=== PATIENT | female | born 1980 | race Caucasian/White ===

== ENCOUNTER 2017-02-19 10:19 | Observation (INO) | payer BC ==
--- NOTE | 2017-02-19 10:52 | ED ---
General Adult HPI - General Chief complaint: Arrhythmia/Palpitations Stated complaint: palpations,dizzy Time Seen by Provider: 02/19/17 10:35 Source: patient, RN notes reviewed, old records reviewed Mode of arrival: wheelchair Limitations: no limitations - History of Present Illness Initial comments: This is a 36-year-old female ER for evaluation of chest pain. Patient is chest pain and left shoulder left-sided chest radiating to jaw. No significant history of heart disease. No travel history no sick contacts. Patient does admit to some mild anxiety but not currently. No recent stress in her life. No other complaints. Patient does complain of symptoms to his chest. Anteriorly, no diaphoresis or shortness of breath. Patient's symptoms started last night but continued at work today. She has history of polycystic ovarian syndrome and prediabetes. No recent weight gain or weight loss, - Related Data Home Medications Medication Instructions Recorded Confirmed Biotin 10,000 mcg PO DAILY 02/19/17 02/19/17 Chromium Picolinate 400 mcg PO DAILY 02/19/17 02/19/17 Multivitamins, Thera [Multivitamin 1 tab PO DAILY 02/19/17 02/19/17 (formulary)] Norethindrone-E.estradiol-Iron 1 tab PO DAILY 02/19/17 02/19/17 [Microgestin Fe 1.5-30 Tab] Spironolactone 100 mg PO DAILY 02/19/17 02/19/17 Vitamin B Complex 1 cap PO [id number] 02/19/17 02/19/17 metFORMIN HCL [Glucophage] 500 mg PO BID 02/19/17 02/19/17 Allergies Allergy/AdvReac Type Severity Reaction Status Date / Time Sulfa (Sulfonamide Allergy Rash/Hives Verified 02/19/17 11:01 Antibiotics) Review of Systems ROS Statement: Those systems with pertinent positive or pertinent negative responses have been documented in the HPI. ROS Other: All systems not noted in ROS Statement are negative. Past Medical History Additional Past Medical History / Comment(s): PCOS History of Any Multi-Drug Resistant Organisms: None Reported Past Surgical History: No Surgical Hx Reported Past Psychological History: No Psychological Hx Reported Smoking Status: Former smoker Past Alcohol Use History: Occasional Past Drug Use History: None Reported General Exam Limitations: no limitations General appearance: alert, in no apparent distress Head exam: Present: atraumatic, normocephalic, normal inspection Eye exam: Present: normal appearance, PERRL, EOMI. Absent: scleral icterus, conjunctival injection, periorbital swelling ENT exam: Present: normal exam, mucous membranes moist Neck exam: Present: normal inspection. Absent: tenderness, meningismus, lymphadenopathy Respiratory exam: Present: normal lung sounds bilaterally. Absent: respiratory distress, wheezes, rales, rhonchi, stridor Cardiovascular Exam: Present: regular rate, normal rhythm, normal heart sounds. Absent: systolic murmur, diastolic murmur, rubs, gallop, clicks GI/Abdominal exam: Present: soft, normal bowel sounds. Absent: distended, tenderness, guarding, rebound, rigid Extremities exam: Present: normal inspection, full ROM, normal capillary refill. Absent: tenderness, pedal edema, joint swelling, calf tenderness Back exam: Present: normal inspection Neurological exam: Present: alert, oriented X3, CN II-XII intact Psychiatric exam: Present: normal affect, normal mood Skin exam: Present: warm, dry, intact, normal color. Absent: rash Course Vital Signs 02/19/17 02/19/17 02/19/17 10:22 10:52 11:42 Temperature 97.8 F Pulse Rate 80 60 70 Respiratory 20 18 18 Rate Blood Pressure 175/74 132/77 128/88 O2 Sat by Pulse 99 99 98 Oximetry 02/19/17 12:00 Temperature Pulse Rate 70 Respiratory 18 Rate Blood Pressure 127/86 O2 Sat by Pulse 99 Oximetry - Reevaluation(s) Reevaluation #1: 02/19/17 13:17 Patient is in no significant distress no chest pain EKG Findings - EKG Comments: EKG Findings:: EKG shows normal sinus rhythm rate of 72, KS 160, QRS 100, QTC 435 Medical Decision Making - Medical Decision Making 36 female ER for evaluation of palpitations and chest pain. Patient does have hit family history of heart disease family history of arrhythmia, patient be kept in the ER for observation, kept on telemetry and admitted to the hospital for cardiac evaluation - Lab Data Result diagrams: 02/19/17 10:50 02/19/17 10:50 Lab Results 02/19/17 02/19/17 02/19/17 Range/Units 10:50 10:50 10:50 WBC 8.7 (3.8-10.6) k/uL RBC 5.08 (3.80-5.40) m/uL Hgb 15.8 (11.4-16.0) gm/dL Hct 47.0 H (34.0-46.0) % MCV 92.7 (80.0-100.0) fL MCH 31.1 (25.0-35.0) pg MCHC 33.5 (31.0-37.0) g/dL RDW 12.5 (11.5-15.5) % Plt Count 272 (150-450) k/uL Neutrophils % 66 % Lymphocytes % 26 % Monocytes % 4 % Eosinophils % 1 % Basophils % 1 % Neutrophils # 5.8 (1.3-7.7) k/uL Lymphocytes # 2.2 (1.0-4.8) k/uL Monocytes # 0.4 (0-1.0) k/uL Eosinophils # 0.1 (0-0.7) k/uL Basophils # 0.0 (0-0.2) k/uL PT (9.0-12.0) sec INR (<1.1) APTT (22.0-30.0) sec Sodium 139 (137-145) mmol/L Potassium 4.3 (3.5-5.1) mmol/L Chloride 101 (98-107) mmol/L Carbon Dioxide 26 (22-30) mmol/L Anion Gap 12 mmol/L BUN 12 (7-17) mg/dL Creatinine 0.60 (0.52-1.04) mg/dL Est GFR (MDRD) Af Amer >60 (>60 ml/min/1.73 sqM) Est GFR (MDRD) Non-Af >60 (>60 ml/min/1.73 sqM) Glucose 90 (74-99) mg/dL Calcium 10.2 (8.4-10.2) mg/dL Magnesium 1.8 (1.6-2.3) mg/dL Total Bilirubin 0.5 (0.2-1.3) mg/dL AST 39 H (14-36) U/L ALT 67 H (9-52) U/L Alkaline Phosphatase 52 (38-126) U/L Total Creatine Kinase 46 (30-135) U/L CK-MB (CK-2) 0.3 (0.0-2.4) ng/mL CK-MB (CK-2) Rel Index 0.7 Troponin I <0.012 (0.000-0.034) ng/mL Total Protein 7.6 (6.3-8.2) g/dL Albumin 4.5 (3.5-5.0) g/dL 02/19/17 Range/Units 10:50 WBC (3.8-10.6) k/uL RBC (3.80-5.40) m/uL Hgb (11.4-16.0) gm/dL Hct (34.0-46.0) % MCV (80.0-100.0) fL MCH (25.0-35.0) pg MCHC (31.0-37.0) g/dL RDW (11.5-15.5) % Plt Count (150-450) k/uL Neutrophils % % Lymphocytes % % Monocytes % % Eosinophils % % Basophils % % Neutrophils # (1.3-7.7) k/uL Lymphocytes # (1.0-4.8) k/uL Monocytes # (0-1.0) k/uL Eosinophils # (0-0.7) k/uL Basophils # (0-0.2) k/uL PT 10.0 (9.0-12.0) sec INR 1.0 (<1.1) APTT 23.6 (22.0-30.0) sec Sodium (137-145) mmol/L Potassium (3.5-5.1) mmol/L Chloride (98-107) mmol/L Carbon Dioxide (22-30) mmol/L Anion Gap mmol/L BUN (7-17) mg/dL Creatinine (0.52-1.04) mg/dL Est GFR (MDRD) Af Amer (>60 ml/min/1.73 sqM) Est GFR (MDRD) Non-Af (>60 ml/min/1.73 sqM) Glucose (74-99) mg/dL Calcium (8.4-10.2) mg/dL Magnesium (1.6-2.3) mg/dL Total Bilirubin (0.2-1.3) mg/dL AST (14-36) U/L ALT (9-52) U/L Alkaline Phosphatase (38-126) U/L Total Creatine Kinase (30-135) U/L CK-MB (CK-2) (0.0-2.4) ng/mL CK-MB (CK-2) Rel Index Troponin I (0.000-0.034) ng/mL Total Protein (6.3-8.2) g/dL Albumin (3.5-5.0) g/dL - Radiology Data Radiology results: report reviewed (Chest x-ray is negative for acute disease), image reviewed Critical Care Time Critical Care Time: Yes Total Critical Care Time: 31 Disposition Clinical Impression: Palpitations, Chest pain Disposition: ADMITTED IP TO THIS [facility] Condition: Undetermined Referrals: Maureen Galindo DO [Primary Care Provider] - 1-2 days
[2017-02-19 11:18] LABS: Basophils % (A) 1 %; CHCM 34.7; Eosinophils # (A) 0.1 k/uL (0-0.7); Eosinophils % (A) 1 %; HGB 15.8 gm/dL (11.4-16.0); Luc # (Auto) 0.19; Luc % (Auto) 2; Lymphocytes # (A) 2.2 k/uL (1.0-4.8); Lymphocytes % (A) 26 %; MCH 31.1 pg (25.0-35.0); MCHC 33.5 g/dL (31.0-37.0); MCV 92.7 fL (80.0-100.0); Mean Platelet Volume 8.1; Monocytes # (A) 0.4 k/uL (0-1.0); Monocytes % (A) 4 %; Neutrophils # (A) 5.8 k/uL (1.3-7.7); Neutrophils % (A) 66 %; RBC 5.08 m/uL (3.80-5.40); RDW 12.5 % (11.5-15.5); WBC 8.7 k/uL (3.8-10.6); WBC (Perox) 7.84
[2017-02-19 11:19] LABS: ALT 67 U/L (9-52); AST 39 U/L (14-36); Alkaline Phosphatase 52 U/L (38-126); Anion Gap 12 mmol/L; Blood Urea Nitrogen 12 mg/dL (7-17); Calcium 10.2 mg/dL (8.4-10.2); Carbon Dioxide 26 mmol/L (22-30); Chloride 101 mmol/L (98-107); Glucose 90 mg/dL (74-99); Magnesium 1.8 mg/dL (1.6-2.3); Non-African American GFR(MDRD) >60 (>60 ml/min/1.73 sqM); Potassium 4.3 mmol/L (3.5-5.1); Sodium 139 mmol/L (137-145); Total Bilirubin 0.5 mg/dL (0.2-1.3); Total Protein 7.6 g/dL (6.3-8.2)
[2017-02-19 11:28] LABS: Creatine Kinase 46 U/L (30-135)
[2017-02-19 11:32] LABS: Partial Thromboplastin Time 23.6 sec (22.0-30.0)
[2017-02-19 11:41] LABS: Creatine Kinase MB 0.3 ng/mL (0.0-2.4); Troponin I <0.012 ng/mL (0.000-0.034)
--- NOTE | 2017-02-19 12:26 | XR ---
EXAMINATION TYPE: XR chest 2V DATE OF EXAM ORDERED: 02/19/2017 HISTORY: Chest Pain. REFERENCE: None. FINDINGS: The lungs are clear. Pleural spaces are clear. Heart size is normal. IMPRESSION: NORMAL CHEST.
[2017-02-19] MEDS ORDERED: NITROGLYCERIN SL TABS 0.4 MG TAB SUBLINGUAL PRN (12:55)
[2017-02-19] MEDS ORDERED: ASPIRIN 81 MG CHEW PO STA (12:55)
[2017-02-19 16:00] LABS: Hemoglobin A1C 4.8 % (4.2-6.1)
[2017-02-19 16:57] LABS: ALT 65 U/L (9-52); AST 37 U/L (14-36); Alkaline Phosphatase 49 U/L (38-126); Anion Gap 11 mmol/L; Blood Urea Nitrogen 13 mg/dL (7-17); Calcium 9.5 mg/dL (8.4-10.2); Carbon Dioxide 26 mmol/L (22-30); Chloride 102 mmol/L (98-107); Glucose 84 mg/dL (74-99); Non-African American GFR(MDRD) >60 (>60 ml/min/1.73 sqM); Potassium 4.4 mmol/L (3.5-5.1); Sodium 139 mmol/L (137-145); Total Bilirubin 0.5 mg/dL (0.2-1.3); Total Protein 7.1 g/dL (6.3-8.2)
[2017-02-19 17:03] LABS: Creatine Kinase 43 U/L (30-135)
[2017-02-19 17:16] LABS: Creatine Kinase MB 0.7 ng/mL (0.0-2.4); Troponin I <0.012 ng/mL (0.000-0.034)
[2017-02-19] MEDS ORDERED: INSULIN LISPRO (humaLOG) 300 UNIT/3 ML VIAL SQ SCH (17:30)
[2017-02-19 20:12] VITALS: RESP 16
[2017-02-19] MEDS: metFORMIN 500 MG TAB PO SCH (20:31)
--- NOTE | 2017-02-19 22:29 | CONS ---
DATE OF CONSULTATION: Mr. Silva is a 36-year-old female with no prior history of coronary artery disease, history of polycystic kidney disease, who presented with palpitations and chest discomfort. The symptoms started while at work. She would have brief palpitations and brief chest discomfort lasting for a very short period of time and feels dizzy, reoccurred a few times during the day. She has been doing well otherwise. She is reasonably active physically, has no history of cardiac disease. She has no history of dizziness, palpitation or syncope. No history of PND, orthopnea, or peripheral edema. She has no prior cardiac history. She has had palpitation in the past but there was no clear etiology to them and they were rare. Her coronary risk factors are negative for hypertension and hyperlipidemia. She is a nonsmoker. There is no documented diabetes. Her medications at home include: 1. Spironolactone 100 mg daily. 2. Metformin 5 mg twice a day. 3. Biotin. REVIEW OF SYSTEMS: RESPIRATORY SYSTEM: She has no history of documented asthma, emphysema or ( ). GI system: No recent GI bleeding. No peptic ulcer disease. system: No dysuria or hematuria. Nervous system: No history of stroke or seizure. PHYSICAL EXAMINATION: She is a 36-year-old female, alert, oriented, in no apparent distress. Blood pressure 122/60 with a heart rate in the 70s. HEAD: Normocephalic. EYES: Sclerae anicteric. NECK: Good upstroke. No bruit. No jugular venous distention. LUNGS: Clear to auscultation. HEART: Regular rate and rhythm. S1, S2, no S3, no rub. ABDOMEN: Soft, nontender. EXTREMITIES: No edema. Lab data revealed troponin less than 0.012, AST is 39. ALT of 67, BUN and creatinine 12 and 0.6. Potassium 15.8. TSH of 0.161. IMPRESSION: 1. Symptoms of palpitations and chest discomfort of unclear etiology. Her arrhythmia does not appear to be related to malignant arrhythmia. 2. Low TSH, further work-up will be needed to rule out hyperthyroidism. 3. History of polycystic kidney disease. RECOMMENDATION: From the cardiac standpoint, I will review the result of her echocardiogram that was obtained. I will obtain a stress echocardiogram. If she has persistent symptoms, afterwards, then I would recommend to obtain event monitor. I have discussed those findings with the patient and her family and they are in full understanding and agreement. Thank you for this consult. We will follow with you.
[2017-02-19] MEDS ORDERED: ALPRAZolam 0.25 MG TAB PO PRN (22:43)
--- NOTE | 2017-02-19 23:13 | HP ---
DATE OF ADMISSION: 02/19/2017 CHIEF COMPLAINT: Palpitations, dizziness and chest pain. HISTORY OF PRESENT ILLNESS: This 36-year-old woman with a past medical history of multiple medical problems, including polycystic ovarian syndrome, chronic low back pain, DJD, history of anxiety, depression, being followed by Dr. Maureen Galindo in the outpatient setting, apparently had symptoms of chest pain, palpitations, dizziness and shortness of breath while going to work, and the patient came to [facility] and was admitted for further evaluation. The pain was felt as most like a pressure type of pain which was not radiating, present on the front of the chest without any associated relieving or aggravating factors. The patient came to [facility], admitted for further evaluation. EKG did not show any acute abnormality except some non-progression R-waves in the anterior leads. CBC, BMP noted. AST, ALT mildly elevated. TSH was 0.161. Free T4 is normal. PAST MEDICAL HISTORY: 1. History of polycystic ovarian syndrome. 2. Chronic low back pain. 3. DJD. Medications prior to admission include: 1. Chromium picolinate. 2. Biotin. 3. Glucophage 500 mg p.o. b.i.d. 4. Vitamin B complex 1 p.o. daily. 5. Aldactone 100 mg p.o. daily. 6. Multivitamins 1 p.o. daily. 7. Microgestin 1 tablet p.o. daily. ALLERGIES: SULFA. FAMILY HISTORY: History of atrial fibrillation and cancer in the family. History of cardiomyopathy, cardiac ablation, peripheral neuropathy, non-Hodgkin's lymphoma, anxiety, schizophrenia, bipolar in father. SOCIAL HISTORY: Previous history of smoking. Occasional alcohol intake. REVIEW OF SYSTEMS: ENT: No diminishing hearing. No diminished vision. CARDIOVASCULAR SYSTEM: As mentioned earlier. RESPIRATORY SYSTEM: As mentioned earlier. GI: No nausea. : No dysuria. NERVOUS SYSTEM: No numbness or weakness. ALLERGY/IMMUNOLOGY: No asthma or hayfever. MUSCULOSKELETAL: As mentioned earlier. HEMATOLOGY/ONCOLOGY: No history of anemia. ENDOCRINE: No history of diabetes, hypothyroidism. CONSTITUTIONAL: As mentioned earlier. DERMATOLOGY: Negative. RHEUMATOLOGY: As mentioned earlier. PHYSICAL EXAMINATION: Patient is alert and oriented x3. Pulse is 74, blood pressure 122/62, respiration 14, temperature 97.8, pulse ox 97% on room air. HEENT: Conjunctivae normal. NECK: No jugular venous distention. CARDIOVASCULAR SYSTEM: S1, S2 muffled. RESPIRATORY SYSTEM: Breath sounds diminished at the bases. No rhonchi. No crackles. ABDOMEN: Soft, nontender. No mass palpable. No hepatosplenomegaly. LEGS: No edema. No swelling. NERVOUS SYSTEM: Higher functions as mentioned earlier. Moves all 4 limbs. No focal motor or sensory deficit. LYMPHATICS: No lymph node palpable in neck, axillae or groin. SKIN: No ulcer, rash, bleeding. LABS: CBC within normal limits. Troponin 0.012. TSH 0.161. AST 39, ALT 67. EKG: non-progression of R-waves in the anterior leads. The chest x-ray is normal. ASSESSMENT: 1. Chest pain, possible unstable angina. 2. Non-progression of R-waves on the EKG. 3. Family history of cardiac issues. 4. Remote history of nicotine dependence. 5. Anxiety, depression not otherwise specified. 6. Polycystic ovarian syndrome. 7. Chronic low back pain and degenerative joint disease. 8. History of urinary tract infections. 9. Increased AST, ALT; hepatitis of undetermined etiology. 10. Decreased TSH with normal free T4. RECOMMENDATIONS AND DISCUSSION: In this 36-year-old woman who presented with multiple complex medical issues, we will monitor the patient closely, continue the current medications, continue symptomatic treatment. I recommend a 2-D echo with Doppler, possibly stress echo. Cardiology consultation. Symptomatic treatment will be provided. Will check a fasting lipid profile. Patient is taking Glucophage for polycystic ovarian syndrome, which will be continued. Prognosis guarded. Further recommendations to follow. Discussed with the patient, who understands and agrees. A copy of this dictation is being forwarded to Dr. Maureen Galindo, who is the primary physician.
[2017-02-20 00:56] LABS: Creatine Kinase 43 U/L (30-135)
[2017-02-20 01:10] LABS: Creatine Kinase MB 0.6 ng/mL (0.0-2.4); Troponin I <0.012 ng/mL (0.000-0.034)
[2017-02-20 05:42] LABS: Basophils % (A) 0 %; CH 31.6; CHCM 34.7; Eosinophils # (A) 0.2 k/uL (0-0.7); Eosinophils % (A) 2 %; HCT 45.3 % (34.0-46.0); HGB 15.3 gm/dL (11.4-16.0); Luc # (Auto) 0.17; Luc % (Auto) 2; Lymphocytes # (A) 3.1 k/uL (1.0-4.8); Lymphocytes % (A) 36 %; MCHC 33.9 g/dL (31.0-37.0); MCV 91.5 fL (80.0-100.0); Mean Platelet Volume 7.7; Monocytes # (A) 0.4 k/uL (0-1.0); Monocytes % (A) 5 %; Neutrophils # (A) 4.8 k/uL (1.3-7.7); Neutrophils % (A) 55 %; RBC 4.95 m/uL (3.80-5.40); RDW 12.5 % (11.5-15.5); WBC 8.8 k/uL (3.8-10.6); WBC (Perox) 8.49
[2017-02-20 06:06] LABS: Cholesterol 196 mg/dL (<200); HDL Cholesterol 86 mg/dL (40-60); Triglycerides 151 mg/dL (<150)
[2017-02-20] MEDS ORDERED: ACETAMINOPHEN TAB 325 MG TAB PO PRN (07:02)
[2017-02-20] MEDS ORDERED: B COMPLEX-VIT C-VIT E-ZINC 1 EACH TAB PO SCH (08:30)
[2017-02-20] MEDS ORDERED: SPIRONOLACTONE 25 MG TAB PO SCH (09:00)
[2017-02-20] MEDS ORDERED: ASPIRIN 325 MG TAB PO SCH (09:00)
--- NOTE | 2017-02-20 10:27 | ECHOF ---
Referral Reason: MEASUREMENTS -------- HEIGHT: 177.8 cm WEIGHT: 99.8 kg BP: 122/62 RVIDd: 2.1 cm (< 3.3) IVSd: 1.0 cm (0.6 - 1.1) LVIDd: 4.9 cm (3.9 - 5.3) LVPWd: 1.0 cm (0.6 - 1.1) IVSs: 1.4 cm LVIDs: 3.5 cm LVPWs: 1.4 cm LAESV Index (A-L): 13.87 ml/m Ao Diam: 2.4 cm (2.0 - 3.7) AV Cusp: 1.8 cm (1.5 - 2.6) LA Diam: 3.1 cm (2.7 - 3.8) MV EXCURSION: 13.059 mm (> 18.000) MV EF SLOPE: 70 mm/s (70 - 150) EPSS: 1.3 cm MV E Lake: 0.85 m/s MV DecT: 198 ms MV A Lake: 0.81 m/s MV E/A Ratio: 1.05 RAP: 5.00 mmHg RVSP: 10.41 mmHg FINDINGS -------- Sinus rhythm. This was a technically adequate study. Overall left ventricular systolic function is normal with, an EF between 55 - 60 %. The right ventricle is normal in size and function. Normal LA size by volume 22+/-6 ml/m2. The right atrium is normal in size. The aortic valve is trileaflet, and appears structurally normal. No aortic stenosis or regurgitation. The mitral valve leaflets are mildly thickened. There is trace mitral regurgitation. Trace tricuspid regurgitation present. There is no evidence of pulmonary hypertension. The right ventricular systolic pressure, as measured by Doppler, is 10.41mmHg. The pulmonic valve is normal. The aortic root size is normal. Normal inferior vena cava with normal inspiratory collapse consistent with estimated right atrial pressure of 5 mmHg. The pericardium is normal. There is no pericardial effusion. CONCLUSIONS -------- 1. Sinus rhythm. 2. The aortic root size is normal. 3. There is no pericardial effusion. 4. Overall left ventricular systolic function is normal with, an EF between 55 - 60 %. 5. Normal LA size by volume 22+/-6 ml/m2. 6. The aortic valve is trileaflet, and appears structurally normal. No aortic stenosis or regurgitation. 7. The mitral valve leaflets are mildly thickened. 8. There is trace mitral regurgitation. 9. Trace tricuspid regurgitation present. 10. There is no evidence of pulmonary hypertension. 11. The right ventricular systolic pressure, as measured by Doppler, is 10.41mmHg. BUZZLE BUFFER: Edgar Villanueva RDCS
[2017-02-20 11:42] VITALS: BP 143/94; PULSE 88; TEMP 98.5
[2017-02-20] MEDS: metFORMIN 500 MG TAB PO SCH (11:54)
[2017-02-20] MEDS ORDERED: MULTIVITAMINS, THERA 1 EACH TAB PO SCH (12:00)
--- NOTE | 2017-02-20 12:42 | ECHOS ---
DATE OF SERVICE: 02/20/2017 AGE: 36Y SEX: F HT: 70 WT: 219 lbs. Protocol Thee: X Others: Stress Echo Stage: III Dur. of Exercise: 8 minutes *Heart Rate Blood Pressure *Rest: 107 Rest: 116/49 * *Max. Achieved: 158 Maximum BP: 210/33 85% PMHR: 158 100% PMHR: 186 *METS: 9.6 INDICATIONS: Chest pain. MEDICATIONS: Metformin, spironolactone. Patient was exercised for a total period of 8 minutes. A peak heart rate of 158 was achieved. Maximum blood pressure of 210/33 mmHg was noted. The patient did not complain of any chest pain during the test. Resting EKG shows normal sinus rhythm with normal IN interval and QRS duration and normal ST-T waves. No ST segment depression suggestive of ischemia is noted. The baseline echocardiographic images reveal a normal left ventricular chamber size with normal left ventricular systolic function. In the immediate postexercise period, normal increase in the wall thickness and contractility is noted. FINAL IMPRESSION: 1. This stress echocardiographic study is negative for stress-induced ischemia. 2. Patient's exercise tolerance is normal. 3. EKG portion of the stress test is not suggestive of ischemia.
--- NOTE | 2017-02-20 12:48 | PN ---
Mrs. Silva is a 36-year-old female who presented with symptoms of palpitations, chest discomfort. She is doing well this morning. Her breathing is stable. She has very brief palpitation yesterday. Otherwise no chest pain. She has been ambulating in the room without difficulty. She continues to be on metformin 500 mg twice a day, spironolactone 100 mg daily, aspirin once a day. PHYSICAL EXAMINATION: Blood pressure running in the one teens with the heart rate in the 60s. LUNGS: Clear. HEART: Regular rate and rhythm. S1 and S2, no S3, no rub. ABDOMEN: Soft, nontender. EXTREMITIES: No edema. Lab data revealed cholesterol 196, LDL of 80. Troponin less than 0.012. IMPRESSION: 1. Chest discomfort, has atypical feature for ischemic heart disease. 2. Palpitation of unclear etiology. 3. Polycystic kidney disease. RECOMMENDATION: Patient will proceed with a stress echocardiogram today. If there is no evidence of inducible ischemia, then no further cardiac workup will be needed.
--- NOTE | 2017-02-20 22:10 | DS ---
DATE OF ADMISSION: 02/19/2017 DATE OF DISCHARGE: 02/20/2017 FINAL DIAGNOSES: 1. Chest pain, possibly musculoskeletal pain with a negative stress test. 2. Nonprogression R wave EKG. 3. Family history of cardiac issues. 4. Remote history of nicotine dependence. 5. Anxiety, depression, not otherwise specified. 6. Polycystic ovarian syndrome history. 7. History of chronic low back pain and degenerative joint disease. 8. History of urinary tract infections. 9. Increased AST, ALT, hepatitis of undetermined etiology. 10. Decreased TSH, normal free T4. 11. FULL CODE. DISCHARGE DISPOSITION: The patient will be discharged in stable condition with guarded prognosis, okayed by Cardiology. HISTORY OF PRESENT ILLNESS: This 36-year-old woman with a past medical history of multiple medical problems, being followed by Dr. Maureen Galindo in the outpatient setting, admitted with chest pain, dizziness and multiple symptomatology. Myocardial infarction ruled out. Cardiology performed a stress echo, which showed negative for stress-induced ischemia. A 2-D echo was also done which showed ejection fraction 55% to 60%. On exam, vitals are stable. CARDIOVASCULAR: S1 and S2 muffled. ABDOMEN: Soft. NERVOUS SYSTEM: No focal deficits. DISCHARGE ADVICE AND MEDICATIONS. 1. Diet is cardiac. 2. Activity limited until followup. 3. Follow up with Dr. Ling in 1 week. 4. Follow up with Dr. Maureen Galindo in 2 to 3 days. 5. Medications will be as follows: a. Biotin 10,000 mcg p.o. daily. b. Chromium 400 mg p.o. daily. c. Glucophage 500 mg p.o. b.i.d. d. Multivitamin 1 p.o. daily. e. Norethindrone as before. f. Spironolactone 100 mg daily. g. Vitamin B complex 1 p.o. daily. Once again, the patient being discharged in a stable condition with a guarded prognosis.
== END 2017-02-20 14:07 | disposition home or self-care (01) ==
LOC: EC 10:19 → 3OBS 12:57
PROVIDERS: ADMIT Hospitalist; ATTEND Hospitalist
DX: R00.2 Palpitations (principal); R07.89 Other chest pain; Q61.3 Polycystic kidney, unspecified; E28.2 Polycystic ovarian syndrome; R73.03 Prediabetes; R42 Dizziness and giddiness; F41.9 Anxiety disorder, unspecified; F32.9 Major depressive disorder, single episode, unspecified; M54.5 Low back pain; G89.29 Other chronic pain; M19.90 Unspecified osteoarthritis, unspecified site; Z79.84 Long term (current) use of oral hypoglycemic drugs; Z79.899 Other long term (current) drug therapy; Z88.2 Allergy status to sulfonamides; Z87.891 Personal history of nicotine dependence; Z82.49 Family history of ischemic heart disease and other diseases of the circulatory system; Z80.7 Family history of other malignant neoplasms of lymphoid, hematopoietic and related tissues; Z81.8 Family history of other mental and behavioral disorders; K75.9 Inflammatory liver disease, unspecified; Z87.440 Personal history of urinary (tract) infections
CPT/HCPCS: 99291 ×2; 36415; 93005; 93350; 93017; 93306; 84439; 80061; 80053; 84443; 83036; 82550; 82553; 83735; 84484; 85025 ×2; 85610; 85730; 71020; G0378 ×2; Q9957

== ENCOUNTER 2022-07-11 14:23 | Emergency (ER) | payer BC ==
[2022-07-11] MEDS ORDERED: ONDANSETRON 4 MG/2 ML VIAL IVP STA (19:13)
[2022-07-11] MEDS ORDERED: SODIUM CHLORIDE 0.9% 1,000 ML IV STA (19:13)
[2022-07-11] MEDS ORDERED: MECLIZINE 12.5 MG TAB PO STA (19:13)
[2022-07-11 19:48] LABS: Basophils # (A) 0.1 k/uL (0-0.2); Basophils % (A) 1 %; Eosinophils # (A) 0.2 k/uL (0-0.7); Eosinophils % (A) 2 %; HCT 43.5 % (34.0-46.0); HGB 15.7 gm/dL (11.4-16.0); Lymphocytes # (A) 2.9 k/uL (1.0-4.8); Lymphocytes % (A) 24 %; MCH 31.3 pg (25.0-35.0); MCHC 36.1 g/dL (31.0-37.0); MCV 86.5 fL (80.0-100.0); Mean Platelet Volume 9.5; Monocytes # (A) 0.4 k/uL (0-1.0); Monocytes % (A) 4 %; Neutrophils # (A) 8.1 k/uL (1.3-7.7); Neutrophils % (A) 69 %; Platelet Count 281 k/uL (150-450); RBC 5.02 m/uL (3.80-5.40); RDW 12.2 % (11.5-15.5); WBC 11.8 k/uL (3.8-10.6)
[2022-07-11 19:56] LABS: Appearance,Urine Cloudy (Clear); Bilirubin,Urine Negative (Negative); Blood,Urine Negative (Negative); Color,Urine Light Yellow; Glucose,Urine (UA) Negative (Negative); Ketones,Urine Negative (Negative); Leukocyte Esterase,Urine Moderate (Negative); Mucus,Urine Rare /hpf; Nitrite,Urine Negative (Negative); PH, Urine 5.5 (5.0-8.0); Protein,Urine Negative (Negative); RBC,Urine 1 /hpf (0-5); Specific Gravity,Urine 1.018 (1.001-1.035); Squamous Epithelial Cell,Urine 11 /hpf (0-4); Urobilinogen,Urine <2.0 mg/dL (<2.0); WBC,Urine 14 /hpf (0-5)
--- NOTE | 2022-07-11 19:57 | XR ---
EXAMINATION TYPE: XR chest 2V DATE OF EXAM: 07/11/2022 COMPARISON: 02/19/2017 HISTORY: Chest pain TECHNIQUE: 2 views FINDINGS: Heart is normal. Lungs are clear. Diaphragm is normal. Bony thorax is intact IMPRESSION: Normal chest. No change.
[2022-07-11 19:59] LABS: ALT 88 U/L (4-34); AST 93 U/L (14-36); African American GFR (CKD) >90 (>60 ml/min/1.73 sqM); Albumin 4.6 g/dL (3.5-5.0); Alkaline Phosphatase 55 U/L (38-126); Anion Gap 10 mmol/L; Blood Urea Nitrogen 12 mg/dL (7-17); Calcium 9.3 mg/dL (8.4-10.2); Carbon Dioxide 23 mmol/L (22-30); Chloride 102 mmol/L (98-107); Glucose 143 mg/dL (74-99); Non-African American GFR(CKD) >90 (>60 ml/min/1.73 sqM); Potassium 3.8 mmol/L (3.5-5.1); Sodium 135 mmol/L (137-145); Total Bilirubin 0.4 mg/dL (0.2-1.3); Total Protein 7.5 g/dL (6.3-8.2)
[2022-07-11 20:04] LABS: Amphetamine Screen,Urine Not Detected (NotDetected); Barbiturate Screen,Urine Not Detected (NotDetected); Benzodiazepines Screen,Urine Not Detected (NotDetected); Cocaine Screen,Urine Not Detected (NotDetected); Methadone Screen, Urine Not Detected (NotDetected); Opiate Screen,Urine Not Detected (NotDetected); Oxycodone Screen, Urine Not Detected (NotDetected); Phencyclidine Screen,Urine Not Detected (NotDetected); Tricyclic Antidepressant,Urine Not Detected (NotDetected); Urn Cannabinoid Scrn Detected (NotDetected)
[2022-07-11 20:09] LABS: Prothrombin Time 10.9 sec (9.0-12.0)
[2022-07-11 20:18] VITALS: RESP 16
--- NOTE | 2022-07-11 21:17 | CT ---
EXAMINATION TYPE: CT brain wo con DATE OF EXAM: 07/11/2022 COMPARISON: None HISTORY: Dizziness x36 hours CT DLP: 1184.4 mGycm Automated exposure control for dose reduction was used. Images obtained of the brain with no contrast. Ventricles have normal size. There is no mass effect or midline shift. No sign of intracranial hemorr jono. The calvarium is intact. No evidence of cerebral edema. IMPRESSION: Negative unenhanced head CT scan.
[2022-07-11 21:47] VITALS: BP 133/65; PULSE 71
[2022-07-11 21:47] LABS: Glucose,Whole Blood 103 mg/dL (70-110)
--- NOTE | 2022-07-11 22:10 | ED ---
General Adult HPI - General Chief complaint: Dizziness Stated complaint: Dizziness,vomiting Time Seen by Provider: 07/11/22 18:58 Source: patient Mode of arrival: ambulatory Limitations: no limitations - History of Present Illness Initial comments: Patient is a 41-year-old female presenting with chief complaint of dizziness. Patient states dizziness has been ongoing for the last 48 hours. Patient states dizziness is worse with turning her head. She admits to nausea with no vomiting. Patient has tinnitus at baseline, states no change. She denies headache, vision or hearing changes, chest pain, difficulty breathing, palpitations, fever, chills, neck pain or stiffness, cough, congestion, sore throat, ear pain, hearing loss, abdominal pain, numbness, tingling. - Related Data Home Medications Medication Instructions Recorded Confirmed Biotin 10,000 mcg PO DAILY 02/19/17 02/19/17 Chromium Picolinate 400 mcg PO DAILY 02/19/17 02/19/17 Multivitamins, Thera [Multivitamin 1 tab PO DAILY 02/19/17 02/19/17 (formulary)] Spironolactone 100 mg PO DAILY 02/19/17 02/19/17 Vitamin B Complex 1 cap PO [id number] 02/19/17 02/19/17 metFORMIN HCL [Glucophage] 500 mg PO BID 02/19/17 02/19/17 norethindrone-e.estradioL-iron 1 tab PO DAILY 02/19/17 02/19/17 [Microgestin Fe 1.5-30 Tab] Previous Rx's Medication Instructions Recorded Meclizine [Antivert] 25 mg PO BID PRN #20 tab 07/11/22 Allergies Allergy/AdvReac Type Severity Reaction Status Date / Time Sulfa (Sulfonamide Allergy Rash/Hives Verified 07/11/22 14:53 Antibiotics) Review of Systems ROS Statement: Those systems with pertinent positive or pertinent negative responses have been documented in the HPI. ROS Other: All systems not noted in ROS Statement are negative. Past Medical History Past Medical History: Asthma Additional Past Medical History / Comment(s): PCOS, chronic low back pain with 2 bulging and one herniated discs, hirsutism, UTI. History of Any Multi-Drug Resistant Organisms: None Reported Past Surgical History: No Surgical Hx Reported Additional Past Surgical History / Comment(s): Epidural back injections. Past Anesthesia/Blood Transfusion Reactions: No Reported Reaction Past Psychological History: Anxiety, Depression Smoking Status: Never smoker Past Alcohol Use History: Occasional Past Drug Use History: Marijuana - Past Family History Father Family Medical History: AFIB, Cancer Additional Family Medical History / Comment(s): Father is a [place] exposed to agent orange, cardiomyopathy, afib, cardiac ablations, peripheral neuropathy, nonhodgkins lymphoma, anxiety, mild schizophrenia, bipolar. Mother Family Medical History: Hypertension, Thyroid Disorder Additional Family Medical History / Comment(s): Graves dx, hyperthyroid, cardiomyopathy, cardiac ablations, depression, anxiety. General Exam Limitations: no limitations General appearance: alert, in no apparent distress Head exam: Present: atraumatic, normocephalic, normal inspection Eye exam: Present: normal appearance, PERRL, EOMI. Absent: scleral icterus, conjunctival injection, periorbital swelling Pupils: Present: normal accommodation Neck exam: Present: normal inspection Respiratory exam: Present: normal lung sounds bilaterally. Absent: respiratory distress, wheezes, rales, rhonchi, stridor Cardiovascular Exam: Present: regular rate, normal rhythm, normal heart sounds. Absent: systolic murmur, diastolic murmur, rubs, gallop, clicks Neurological exam: Present: alert, oriented X3, CN II-XII intact Psychiatric exam: Present: normal affect, normal mood Skin exam: Present: warm, dry, intact, normal color. Absent: rash Course Vital Signs 07/11/22 07/11/22 07/11/22 14:51 19:45 21:47 Temperature 98.3 F 98.1 F Pulse Rate 78 74 71 Respiratory 20 16 16 Rate Blood Pressure 139/86 121/73 133/65 O2 Sat by Pulse 99 96 98 Oximetry EKG Findings - EKG Comments: EKG Findings:: EKG is interpreted by me as well as my attending Dr. Conrad. Sinus rhythm. Ventricular rate 66. RI interval 166. QRS 110. QT 388. QTC 402. Normal axis. No ischemic changes. Medical Decision Making - Medical Decision Making Patient is a 41-year-old female presenting with chief complaint of dizziness. Symptoms present for the last 48 hours, dizziness is worse with turning of the head. Physical examination is unremarkable, no focal neurological deficits and heart and lungs are clear to auscultation. Lab work is nonactionable. Urine shows signs of contamination, will be sent for culture. Toxicology is positive for THC. Chest x-ray shows no acute process. EKG shows sinus rhythm. CT of the brain shows no acute process. Patient reports improvement with meclizine. Symptoms are likely due to BPPV.Follow-up with PCP. Report back to ER with any new or worsening symptoms. Discussed return parameters and answered all questions. Patient conveyed verbal understanding and agreed to the plan. I discussed this case in detail with my attending Dr. Conrad - Lab Data Result diagrams: 07/11/22 19:30 07/11/22 19:30 Lab Results 07/11/22 07/11/22 07/11/22 Range/Units 19:30 19:30 19:30 WBC 11.8 H (3.8-10.6) k/uL RBC 5.02 (3.80-5.40) m/uL Hgb 15.7 (11.4-16.0) gm/dL Hct 43.5 (34.0-46.0) % MCV 86.5 (80.0-100.0) fL MCH 31.3 (25.0-35.0) pg MCHC 36.1 (31.0-37.0) g/dL RDW 12.2 (11.5-15.5) % Plt Count 281 (150-450) k/uL MPV 9.5 Neutrophils % 69 % Lymphocytes % 24 % Monocytes % 4 % Eosinophils % 2 % Basophils % 1 % Neutrophils # 8.1 H (1.3-7.7) k/uL Lymphocytes # 2.9 (1.0-4.8) k/uL Monocytes # 0.4 (0-1.0) k/uL Eosinophils # 0.2 (0-0.7) k/uL Basophils # 0.1 (0-0.2) k/uL PT 10.9 (9.0-12.0) sec INR 1.0 (<1.2) Sodium (137-145) mmol/L Potassium (3.5-5.1) mmol/L Chloride (98-107) mmol/L Carbon Dioxide (22-30) mmol/L Anion Gap mmol/L BUN (7-17) mg/dL Creatinine (0.52-1.04) mg/dL Est GFR (CKD-EPI)AfAm (>60 ml/min/1.73 sqM) Est GFR (CKD-EPI)NonAf (>60 ml/min/1.73 sqM) Glucose (74-99) mg/dL POC Glucose (mg/dL) (70-110) mg/dL POC Glu P[employer] Engineer ID Plasma Lactic Acid Joe (0.7-2.0) mmol/L Calcium (8.4-10.2) mg/dL Total Bilirubin (0.2-1.3) mg/dL AST (14-36) U/L ALT (4-34) U/L Alkaline Phosphatase (38-126) U/L Total Protein (6.3-8.2) g/dL Albumin (3.5-5.0) g/dL Urine Color Light Yellow Urine Appearance Cloudy H (Clear) Urine pH 5.5 (5.0-8.0) Ur Specific [place] 1.018 (1.001-1.035) Urine Protein Negative (Negative) Urine Glucose (UA) Negative (Negative) Urine Ketones Negative (Negative) Urine Blood Negative (Negative) Urine Nitrite Negative (Negative) Urine Bilirubin Negative (Negative) Urine Urobilinogen <2.0 (<2.0) mg/dL Ur Leukocyte Esterase Moderate H (Negative) Urine RBC 1 (0-5) /hpf Urine WBC 14 H (0-5) /hpf Ur Squamous Epith Cells 11 H (0-4) /hpf Urine Mucus Rare H (None) /hpf Urine Opiates Screen Not Detected (NotDetected) Ur Oxycodone Screen Not Detected (NotDetected) Urine Methadone Screen Not Detected (NotDetected) Ur Propoxyphene Screen Not Detected (NotDetected) Ur Barbiturates Screen Not Detected (NotDetected) U Tricyclic Antidepress Not Detected (NotDetected) Ur Phencyclidine Scrn Not Detected (NotDetected) Ur Amphetamines Screen Not Detected (NotDetected) U Methamphetamines Scrn Not Detected (NotDetected) U Benzodiazepines Scrn Not Detected (NotDetected) Urine Cocaine Screen Not Detected (NotDetected) U Marijuana (THC) Screen Detected H (NotDetected) 07/11/22 07/11/22 07/11/22 Range/Units 19:30 19:30 21:43 WBC (3.8-10.6) k/uL RBC (3.80-5.40) m/uL Hgb (11.4-16.0) gm/dL Hct (34.0-46.0) % MCV (80.0-100.0) fL MCH (25.0-35.0) pg MCHC (31.0-37.0) g/dL RDW (11.5-15.5) % Plt Count (150-450) k/uL MPV Neutrophils % % Lymphocytes % % Monocytes % % Eosinophils % % Basophils % % Neutrophils # (1.3-7.7) k/uL Lymphocytes # (1.0-4.8) k/uL Monocytes # (0-1.0) k/uL Eosinophils # (0-0.7) k/uL Basophils # (0-0.2) k/uL PT (9.0-12.0) sec INR (<1.2) Sodium 135 L (137-145) mmol/L Potassium 3.8 (3.5-5.1) mmol/L Chloride 102 (98-107) mmol/L Carbon Dioxide 23 (22-30) mmol/L Anion Gap 10 mmol/L BUN 12 (7-17) mg/dL Creatinine 0.59 (0.52-1.04) mg/dL Est GFR (CKD-EPI)AfAm >90 (>60 ml/min/1.73 sqM) Est GFR (CKD-EPI)NonAf >90 (>60 ml/min/1.73 sqM) Glucose 143 H (74-99) mg/dL POC Glucose (mg/dL) 103 (70-110) mg/dL POC Glu Pumping Station Engineer ID Yuval Vicenta Plasma Lactic Acid Joe 1.7 (0.7-2.0) mmol/L Calcium 9.3 (8.4-10.2) mg/dL Total Bilirubin 0.4 (0.2-1.3) mg/dL AST 93 H (14-36) U/L ALT 88 H (4-34) U/L Alkaline Phosphatase 55 (38-126) U/L Total Protein 7.5 (6.3-8.2) g/dL Albumin 4.6 (3.5-5.0) g/dL Urine Color Urine Appearance (Clear) Urine pH (5.0-8.0) Ur Specific [place] (1.001-1.035) Urine Protein (Negative) Urine Glucose (UA) (Negative) Urine Ketones (Negative) Urine Blood (Negative) Urine Nitrite (Negative) Urine Bilirubin (Negative) Urine Urobilinogen (<2.0) mg/dL Ur Leukocyte Esterase (Negative) Urine RBC (0-5) /hpf Urine WBC (0-5) /hpf Ur Squamous Epith Cells (0-4) /hpf Urine Mucus (None) /hpf Urine Opiates Screen (NotDetected) Ur Oxycodone Screen (NotDetected) Urine Methadone Screen (NotDetected) Ur Propoxyphene Screen (NotDetected) Ur Barbiturates Screen (NotDetected) U Tricyclic Antidepress (NotDetected) Ur Phencyclidine Scrn (NotDetected) Ur Amphetamines Screen (NotDetected) U Methamphetamines Scrn (NotDetected) U Benzodiazepines Scrn (NotDetected) Urine Cocaine Screen (NotDetected) U Marijuana (THC) Screen (NotDetected) Disposition Clinical Impression: BPPV (benign paroxysmal positional vertigo) Disposition: HOME SELF-CARE Condition: Good Instructions (If sedation given, give patient instructions): Dizziness (ED) Additional Instructions: Follow-up with PCP. Report back to ER with any new or worsening symptoms. Take medication as prescribed. Prescriptions: Meclizine [Antivert] 25 mg PO BID PRN #20 tab PRN Reason: Vertigo Is patient prescribed a controlled substance at d/c from ED?: No Referrals: Gail Rosa DO [Primary Care Provider] - 1-2 days Time of Disposition: 22:10
[2022-07-11 22:19] VITALS: TEMP 98.3
== END 2022-07-11 22:19 | disposition home or self-care (01) ==
LOC: EC 14:23
DX: H81.10 Benign paroxysmal vertigo, unspecified ear (principal); J45.909 Unspecified asthma, uncomplicated; F12.90 Cannabis use, unspecified, uncomplicated; F32.A Depression, unspecified; F41.9 Anxiety disorder, unspecified; Z88.2 Allergy status to sulfonamides
CPT/HCPCS: 99284; 96374; 96361; 36415; 93005; 80053; 83605; 85025; 85610; 81001; 80306; 87086; 71046; 70450; J2405